=== PATIENT | female | born 1975 | race Caucasian/White ===

== ENCOUNTER 2017-01-24 19:29 | Emergency (ER) | payer OTHER ==
--- NOTE | 2017-01-25 19:33 | ER ---
ADMIT: 01/24/2017 RM/LOC: ER [facility] MR#: [id number] [address] [address] MILI MUJICA [address] [place] [address] Emergency Room Report SEX: F AGE: 42 : 1975 DATE: 01/24/2017 ADDENDUM: Please see my T-sheet for complete review of systems, past medical history, and physical exam. CHIEF COMPLAINT: Back pain. HISTORY OF PRESENT ILLNESS: A pleasant 42-year-old female, who presents with 7 days duration of thoracic back pain. Denies any known injury. States she does work as a [employer], so she does do some lifting, turning, and bending. However, does not recall a specific injury. Rates the pain as an 8/10. Describes it as sharp between the shoulder blades and thoracic paravertebral musculature. Does not radiate. No fever, chills, constipation, incontinence, nausea, vomiting, lightheadedness, dizziness, difficulty walking, numbness, weakness. Worse with movement, relieved by nothing. She has been trying over- the-counter Motrin for pain with little improvement. Denies history of smoking. Does have a family with a history of brain aneurysm. COURSE IN THE EMERGENCY ROOM: GENERAL: The patient was seen and examined, afebrile, nontoxic. No acute distress. NECK: Painless range of motion. CHEST: Nontender. HEART: Heart sounds, no murmurs, gallops, or rubs. LUNGS: Breath sounds normal bilaterally. ABDOMEN: Soft and nontender. BACK: She does have decreased range of motion in thoracic spine with paravertebral muscle spasm. NEURO: She is alert and oriented. Motor and sensation are equal in the upper and lower extremities compared bilaterally. Reflexes are 2+ compared bilaterally in the lower extremity. SKIN: Warm and dry. She is concerned about possible kidney infection. ADMIT: 01/24/2017 RM/LOC: ER [facility] MR#: [id number] [id number] [place], [place] [address] MILI MUJICA [address] [place] [address] Emergency Room Report SEX: F AGE: 42 : 1975 They did get a UA on her. No signs of acute infection. She was given Toradol 15 mg IM as well as Valium 5 mg p.o., some improvement of her pain. IMPRESSION: Thoracic spine strain. DISPOSITION: The patient was discharged, script for Rutledge 5/325 tabs, one to two tabs p.o. q.4-6 hours as needed for pain #20 as well as Flexeril 5 mg tabs one tab p.o. t.i.d. p.r.n. spasm #15. Continue to stay active. I did recommend naproxen 500 mg p.o. b.i.d. for 5 days with food. Ice. Heat as tolerated. Follow up with PCP if not improving. Questions sought and answered to the best of my ability and to the patient's satisfaction. Discharged in stable condition. VIK Lance / Chato Hodgson MD / flaquito JOB #: [id number] CC: Chato Hodgson MD, Attending Physician Ana Knowles MD, Family Physician
== END 2017-01-24 21:48 | disposition home or self-care (01) ==
LOC: ER 19:29
DX: S29.012A Strain of muscle and tendon of back wall of thorax, initial encounter (principal); X50.9XXA Other and unspecified overexertion or strenuous movements or postures, initial encounter